=== PATIENT | male | born 1950 | race Caucasian/White ===

== ENCOUNTER → 2017-07-02 | Outpatient (CLI) | payer MEDICARE, OTHER ==
--- NOTE | 2017-07-03 09:30 | EKG ---
Date Performed: 07/02/2017 Time Performed: 08:44:16 PTAGE: 67 years EKG: Sinus rhythm WITH FREQUENT VENTRICULAR PREMATURE COMPLEXES ABNORMAL RHYTHM ECG NO PREVIOUS TRACING DOCTOR: Juan Rubin Interpretating Date/Time 07/03/2017 09:29:24
== END ==
LOC: HCAV 08:31
PROVIDERS: ATTEND Internal Medicine Nephrology
DX: I49.3 Ventricular premature depolarization (principal); R94.31 Abnormal electrocardiogram [ECG] [EKG]
CPT/HCPCS: 93005